=== PATIENT | male | born 1970 | race Caucasian/White ===

== ENCOUNTER 2021-01-24 04:33 | Emergency (ER) | payer SELFPAY ==
[2021-01-24 05:10] LABS: Hemoglobin 14.8 g/dL (13.5-17.5); Mean Corpuscular HGB CONC 32.8 g/dL (32.0-36.0); Mean Corpuscular Hemoglobin 29.5 pg (27.0-33.0); Mean Platelet Volume 9.5 fl (7.4-10.4); Platelet Count 507 10x3/uL (150-450); RBC Distribution Width 12.6 % (11.5-14.5); Red Blood Cell (RBC) Count 5.01 10x6/uL (4.32-5.72); White Blood Cell (WBC) Count 12.3 10x3/uL (3.5-10.5)
[2021-01-24 05:33] LABS: ALT (SGPT) 18 U/L (8-55); AST (SGOT) 18 U/L (5-34); Alkaline Phosphatase 96 U/L (40-110); Anion Gap 15 mmol/L (10-20); BUN (Urea Nitrogen) 19 mg/dL (8.4-25.7); Bilirubin, Total 0.4 mg/dL (0.2-1.2); Calc. Creatinine Clearance 0 mL/min (70-130); Calcium 9.1 mg/dL (7.8-10.44); Carbon Dioxide 24 mmol/L (22-29); Chloride 105 mmol/L (98-107); Globulin 3.2 g/dL (2.4-3.5); Glucose 106 mg/dL (70-105); Potassium 4.5 mmol/L (3.5-5.1); Protein, Total 7.2 g/dL (6.0-8.3); Sodium 139 mmol/L (136-145)
[2021-01-24 07:37] LABS: Band 1 % (5-11); Lymphocytes 30 % (21-51); Monocytes 10 % (0-10); Neutrophil 41 % (42-75); Platelet Morphology Comment Appears Increased; Reactive Lymphocytes 16 % (0-10)
[2021-01-24 07:38] LABS: Large Platelets SLIGHT
[2021-01-24 07:39] LABS: Platelet Clumps SLIGHT; Small Platelets MODERATE
[2021-01-24 07:40] LABS: MDiff Complete? YES; RBC Morphology Normal
== END 2021-01-24 06:12 | disposition home or self-care (01) ==
LOC: CSHERS 04:33
DX: R07.2 Precordial pain (principal); F17.210 Nicotine dependence, cigarettes, uncomplicated
CPT/HCPCS: 71045; 80053; 84484; 85025; 93005

== ENCOUNTER 2021-08-16 02:02 | Emergency (ER) | payer SELFPAY ==
[2021-08-16] MEDS ORDERED: Ibuprofen 200 MG TAB ONE (02:40)
[2021-08-16] MEDS ORDERED: Bicillin LA 1.2 MILLION UNITS/2 ML SYRINGE ONE (02:41)
== END 2021-08-16 02:46 | disposition home or self-care (01) ==
LOC: CSHERS 02:02
DX: K04.7 Periapical abscess without sinus (principal); K02.9 Dental caries, unspecified; F17.210 Nicotine dependence, cigarettes, uncomplicated
CPT/HCPCS: 96372; 99282; J0561

== ENCOUNTER 2023-04-27 11:14 | Emergency (ER) | payer SELFPAY ==
[2023-04-27 12:15] LABS: SARS-CoV-2 NAA Rapid Test DETECTED (NotDetected)
== END 2023-04-27 13:36 | disposition home or self-care (01) ==
LOC: CSHERS 11:14
DX: U07.1 COVID-19 (principal); I10 Essential (primary) hypertension; F17.210 Nicotine dependence, cigarettes, uncomplicated
CPT/HCPCS: 99283